=== PATIENT | female | born 1995 ===

== ENCOUNTER 2025-02-28 09:10 | Outpatient (CLI) | payer BC, SELFPAY ==
--- NOTE | ~2025-02-28 | US_ITS ---
Pelvic ultrasound. Clinical History: Pelvic pain Technique: Realtime transabdominal scanning of the pelvis was performed. Color flow Doppler and Doppl er spectral analysis were performed. Findings: The uterus is anteverted. The endometrial stripe has a thickness of 5 mm. There is a 5 cm fundal fibroid. Smaller fibroids towards the lower uterine segment measuring up to 1.5 cm in diameter . Additional central intramural or subserosal fibroid measures 4.0 cm in diameter. The right ovary measures 2.1 x 1.4 x 2.8 cm. No significant right ovarian or adnexal mass is seen. The left ovary measures 3.3 x 2.0 x 2.4 cm. No significant left ovarian or adnexal mass is seen. There is no evidence of free fluid in the cul de sac. Impression: Multiple uterine fibroids, as detailed above. Reviewed, dictated and finalized at [facility]. Impression: Multiple uterine fibroids, as detailed above.
== END 2025-02-28 09:11 | disposition home or self-care (01) ==
LOC: MICIMG 09:12
PROVIDERS: Visit Provider Nurse Practitioner
DX: R10.2 Pelvic and perineal pain (principal); D25.9 Leiomyoma of uterus, unspecified
CPT/HCPCS: 76856